=== PATIENT | male | born 1980 | race Caucasian/White ===

== ENCOUNTER → 2017-07-22 | Outpatient (CLI) | payer SELFPAY ==
[~2017-07-22] MED LIST: HYDR10SO PO; IBUP800T23 PO; LORA-475 PO; METH750T2 PO
--- NOTE | 2017-07-23 14:59 | EKG ---
Date Performed: 07/22/2017 Time Performed: 12:53:12 PTAGE: 36 years EKG: Sinus rhythm . Poor R wave progression - probable normal variant Septal T wave changes are nonspecific Borderline ECG PREVIOUS TRACING : 06/10/2009 12.00 Since previous tracing, no significant change noted DOCTOR: Johnathan Spencer Interpretating Date/Time 07/23/2017 14:57:54
== END ==
LOC: HCAV 12:30
DX: Z79.899 Other long term (current) drug therapy (principal); R94.31 Abnormal electrocardiogram [ECG] [EKG]
CPT/HCPCS: 93005